=== PATIENT | female | born 1985 | race Caucasian/White ===

== ENCOUNTER 2020-08-07 18:13 | Emergency (ER) | payer BC ==
[2020-08-07] MEDS ORDERED: Metoclopramide HCl 10 MG/2 ML VIAL ONE (20:49)
[2020-08-07] MEDS ORDERED: Ondansetron PF 4 MG/2 ML Vial ONE (20:49)
== END 2020-08-07 22:05 | disposition home or self-care (01) ==
LOC: ERS 18:13
DX: R42 Dizziness and giddiness (principal); R55 Syncope and collapse; R11.2 Nausea with vomiting, unspecified; J45.909 Unspecified asthma, uncomplicated; Z79.899 Other long term (current) drug therapy
CPT/HCPCS: 93005; 96365; 96375; J2405; J2765